=== PATIENT | female | born 1975 | race Caucasian/White ===

== ENCOUNTER 2024-08-04 13:56 | Emergency (ER) | payer OTHER, BC ==
[~2024-08-04] VITALS: Ht 167.6 cm; Wt 93.0 kg
[~2024-08-04 13:56] MED LIST: CITALOPRAM HBR10 MG; EUTHYROX50 MCG; XARELTO20 MG
[2024-08-04 14:00] VITALS: BP 148/97
[2024-08-04] MEDS ORDERED: Ibuprofen 600 MG Tab PO ONE (14:05)
== END 2024-08-04 15:40 | disposition home or self-care (01) ==
LOC: ER 13:56
DX: S20.212A Contusion of left front wall of thorax, initial encounter (principal); S40.012A Contusion of left shoulder, initial encounter; V43.52XA Car driver injured in collision with other type car in traffic accident, initial encounter; Z79.01 Long term (current) use of anticoagulants; Z79.899 Other long term (current) drug therapy; Z79.890 Hormone replacement therapy; Z88.0 Allergy status to penicillin
CPT/HCPCS: 71046; 99285-25; A9270

== ENCOUNTER → 2024-09-16 | Outpatient (CLI) | payer BC, OTHER ==
[2024-09-24 08:57] LABS: HPV HIGH RISK BY TMA Not Detected; HPV SOURCE Cervical
== END ==
LOC: LAB SHORT 15:42 → LAB 15:42 → LAB SHORT 09-17 15:30
PROVIDERS: Registered Nurse
DX: Z12.4 Encounter for screening for malignant neoplasm of cervix (principal)
CPT/HCPCS: 87624; G0123